=== PATIENT | female | born 1950 | race Caucasian/White ===

== ENCOUNTER 2017-07-18 17:15 | Inpatient (IN) | payer BC, MEDICARE ==
[2017-07-27 16:40] VITALS: BMI 40.1
[2017-08-02] MEDS ORDERED: Scopolamine 1.5 mg/72 hour Patch ONE (06:18)
[2017-08-02] MEDS ORDERED: Heparin 5,000 UNITS/ML VIAL ONE (06:18)
[2017-08-02] MEDS ORDERED: Ketorolac Tromethamine 30 MG/ML VIAL ONE (06:18)
[2017-08-02] MEDS ORDERED: Midazolam HCl 2 mg/2 ml Vial ONE (06:22)
[2017-08-02] MEDS ORDERED: Fentanyl 100 MCG/2 ML VIAL ONE ×3 (06:22→10:17)
[2017-08-02] MEDS ORDERED: cefOXitin Sodium 2 GM, Syringe 1 ML in Sterile Water 10 ML SLOW IVP SCH (06:30)
[2017-08-02] MEDS ORDERED: Bupivacaine/Epinephrine 0.25% 30 ML VIAL ONE (06:53)
[2017-08-02] MEDS ORDERED: Propofol 500 MG/50 ML VIAL ONE (07:07)
[2017-08-02] MEDS ORDERED: Promethazine HCl 25 MG/ML VIAL SLOW IVP PRN (09:58)
[2017-08-02] MEDS ORDERED: Ondansetron HCl/PF 4 MG/2 ML Vial IVP PRN ×2 (09:58→11:19)
[2017-08-02] MEDS ORDERED: Morphine Sulfate 2 MG/ML SYRINGE SLOW IVP PRN (09:58)
[2017-08-02] MEDS ORDERED: Meperidine HCl/PF 25 MG/ML VIAL SLOW IVP PRN (09:58)
[2017-08-02] MEDS ORDERED: HYDROmorphone 2 MG/ML VIAL SLOW IVP PRN (09:58)
[2017-08-02] MEDS ORDERED: Promethazine HCl 25 MG/ML VIAL ONE (10:17)
[2017-08-02] MEDS ORDERED: D5 1/2 NS w/20 mEq KCL 1,000 ML ONE (10:22)
[2017-08-02] MEDS ORDERED: Dextrose 50% Abboject 50 ML SYRINGE SLOW IVP PRN (11:19)
[2017-08-02] MEDS ORDERED: diphenhydrAMINE 50 MG/ML VIAL IVP PRN (11:19)
[2017-08-02] MEDS ORDERED: hydrALAZINE 20 MG/ML VIAL SLOW IVP PRN (11:19)
[2017-08-02] MEDS ORDERED: Hydrocodone-Acetamin 15 ML UDCUP PO PRN (11:19)
[2017-08-02] MEDS ORDERED: Promethazine HCl 25 MG/ML VIAL IM PRN (11:19)
[2017-08-02] MEDS ORDERED: Dextrose 5% in Water 1,000 ML IV PRN (11:19)
[2017-08-02] MEDS ORDERED: Morphine 4 MG/ML VIAL SLOW IVP PRN ×2 (12:00)
[2017-08-02] MEDS: Ketorolac Tromethamine 30 MG/ML VIAL IVP SCH ×3 (12:21→23:50)
[2017-08-02] MEDS: D5 1/2 NS w/20 mEq KCL 1,000 ML IV SCH ×2 (12:22→19:00)
[2017-08-02] MEDS ORDERED: Ondansetron HCl/PF 4 MG/2 ML Vial ONE (16:33)
[2017-08-02] MEDS ORDERED: Propofol 200 MG/20 ML VIAL ONE (16:33)
[2017-08-02] MEDS ORDERED: Dexamethasone 20 MG/5 ML VIAL ONE (16:33)
[2017-08-02] MEDS ORDERED: Glycopyrrolate 0.2 MG/ML 5 ML SYRINGE ONE (16:33)
[2017-08-02] MEDS ORDERED: Lidocaine 1% PF 5 ML VIAL ONE (16:33)
[2017-08-02] MEDS ORDERED: PHENYLEPHRINE-NS 100 MCG/ML 10 ML SYRINGE ONE (16:33)
[2017-08-02] MEDS ORDERED: Enoxaparin Sodium 40 MG/0.4 ML SYRINGE SC SCH (21:00)
[2017-08-03] MEDS: Ketorolac Tromethamine 30 MG/ML VIAL IVP SCH ×2 (05:35→12:04)
[2017-08-03] MEDS: D5 1/2 NS w/20 mEq KCL 1,000 ML IV SCH ×2 (05:41→10:20)
[2017-08-03 06:21] LABS: #Lymphocytes 1.5 thou/uL (1.20-3.40); #Monocytes 0.7 thou/uL (0.11-0.59); %Basophils 0.1 % (0.0-1.0); %Eosinophils 0.2 % (0.0-10.0); %Lymphocytes 16.2 % (21.0-51.0); Hematocrit 37.6 % (36.0-47.0); Mean Platelet Volume 7.6 fL (7.4-10.4); Red Blood Cell (RBC) Count 4.23 mill/uL (4.20-5.40); White Blood Cell (WBC) Count 9.2 thou/uL (4.8-10.8)
[2017-08-03 06:37] LABS: Anion Gap 9 mmol/L (10-20); BUN (Urea Nitrogen) 12 mg/dL (9.8-20.1); Calc. Creatinine Clearance 133 mL/min (70-130); Calcium 8.7 mg/dL (7.8-10.44); Carbon Dioxide 26 mmol/L (23-31); Chloride 106 mmol/L (98-107); Estimated GFR-MDRD 79
--- NOTE | 2017-08-03 08:55 | RAD ---
LIMITED UPPER GI WITH 15 ML GASTROGRAFIN: Date: 08/03/17 HISTORY: Recent bariatric surgery (gastric bypass). FINDINGS: There is prompt passage of contrast from the esophagus into the small bowel loop. No contrast extrava sation is seen. IMPRESSION: Unremarkable exam. POS: CHELY
[2017-08-03] MEDS ORDERED: FLUoxetine HCl 20 MG CAP PO SCH (09:00)
[2017-08-03 12:17] VITALS: BP 154/84; TEMP 98
[2017-08-03] MEDS ORDERED: Pantoprazole 40 MG VIAL IVP SCH (21:00)
--- NOTE | 2017-08-04 05:52 | OP ---
DATE OF PROCEDURE: 08/02/2017 PREOPERATIVE DIAGNOSIS: Morbid obesity. POSTOPERATIVE DIAGNOSIS: Morbid obesity. PROCEDURE PERFORMED: Laparoscopic Jocelynn-en-Y gastric bypass. SURGEON: Dr. Catrachito Mello. TACK PICKER: Christopher Ohara M.D. ANESTHESIA: General endotracheal. INDICATIONS: The patient is a 67-year-old white female. She presents with a long history of obesity . She has undergone preoperative evaluation and education and presents at this time for laparoscopic gastric bypass. OPERATIVE PROCEDURE IN DETAIL: Informed consent was obtained. The patient was taken to the operatin g room where general endotracheal anesthesia was obtained with the patient in supine position. The a bdomen was prepped with ChloraPrep and draped in sterile fashion. Local anesthetic was infiltrated u sing 0.25% Marcaine with epinephrine and a 5 mm supraumbilical incision was created through which Andreas ess needle was passed into the peritoneal cavity and pneumoperitoneum established using carbon dioxid e up to a pressure of 15 mmHg. A 5 mm trocar port was passed through this same incision. Laparoscop ic camera was passed through this port. Under direct vision, 4 additional ports were placed includin g bilateral subcostal 5 mm ports, a 12 mm right paramedian port, and a 15 mm left paramedian port. I also made a 5 mm epigastric incision through which I placed a Pk retractor, which was used to elevate the left lobe of the liver. Attention was turned inferiorly. There were adhesions to the anterior abdominal wall. Some of these were easily lysed, but some of these were fairly tightly adherent to the abdominal wall and I decide d not to risk bowel injury by addressing this further. I was uncertain if that would be a segment of bowel to be involved in the gastric bypass or not. Attention was then turned to the omentum. This was split in the midline up to the transverse colon u sing the LigaSure device. The ligament of Treitz was identified and the small bowel was traced 50 cm distally where it was divided with a single fire of the white load of the Corinna stapler. The dist al segment of bowel was devascularized for 5 cm. I then traced the bowel 100 cm distally and at this point, created an anastomosis between the biliary limb and the Jocelynn limb with a single firing of the white load of the stapler. The enterotomy was closed with a transverse firing of another load of th e stapler. The mesentery defect was then closed with 2 interrupted sutures of 3-0 Vicryl. The patient was placed into a reverse Trendelenburg position. Attention was turned to the stomach. I first dissected the angle of His. I then identified the lesser curvature, approximately 5 cm from the gastroesophageal junction. At this point, I dissected into the lesser sac and then fired a blue load of the Corinna stapler partially across the stomach at this level. A gastrotomy was then create d on the distal stomach. Through this, I placed the anvil of the 25 mm EEA stapler and brought this out through the anterior gastric wall just proximal to the staple line using the 5 mm band passer. T he gastrotomy was then closed with 2 fires of the Corinna stapler. The pouch was then completed with two additional firings of the Corinna stapler. The staple lines were inspected and noted to be hemo static. Attention was then turned to the Jocelynn limb. An enterotomy was created and the EEA stapler w as advanced within the Jocelynn limb beyond the mesenteric split. At this point, the spike was advanced through the wall of the small bowel and was attached to the anvil. The small bowel and stomach were approximated and anastomosed by firing the stapler. Doughnuts were inspected and noted to be intact. The devascularized segment of the small bowel was removed with a final firing of the Corinna staple r, which included the enterotomy as well. The anastomosis was then buttressed with 3 interrupted sut ures of 3-0 Vicryl. A nasogastric tube was advanced through the anastomosis and a leak test was perf ormed with the staple lines under water. There was no evidence of leak. All irrigant was aspirated. The Pk retractor was removed. The fascial defect at the 15 mm port site was closed with the GraNee needle using 0 Vicryl suture. All ports and instruments were removed under direct vision. P neumoperitoneum was carefully evacuated. Quarter percent Marcaine with epinephrine was infiltrated i n each port site. Skin edges approximated with 4-0 Monocryl subcuticular suture. Dermabond was plac ed externally. There were no complications. The patient tolerated the procedure well and was taken to recovery room in stable condition.
== END 2017-08-03 16:01 | disposition home or self-care (01) | DRG 621 ==
LOC: SURG A 08-02 05:51
PROVIDERS: ADMIT Specialist; ATTEND Specialist
PROC: 0D164ZA Bypass Stomach to Jejunum, Percutaneous Endoscopic Approach (ICD-10-PCS; principal; 2017-08-02)
DX: E66.01 Morbid (severe) obesity due to excess calories (principal); F32.9 Major depressive disorder, single episode, unspecified; K43.2 Incisional hernia without obstruction or gangrene; Z68.41 Body mass index [BMI] 40.0-44.9, adult; F17.210 Nicotine dependence, cigarettes, uncomplicated
CPT/HCPCS: 36415; 74241; 80048; 85025; A4216; J0131; J0694; J1100; J1644; J1650; J1885; J2001; J2250; J2405; J2550; J2704; J3010

== ENCOUNTER 2017-07-27 16:30 | Outpatient (CLI) | payer BC, MEDICARE | END 2017-07-27 16:31 | disposition home or self-care (01) | LOC: LABBT 16:30 | PROVIDERS: ATTEND Specialist | DX: Z01.812 Encounter for preprocedural laboratory examination (principal); E66.01 Morbid (severe) obesity due to excess calories ==

== ENCOUNTER 2017-11-12 08:47 | Outpatient (CLI) | payer BC, MEDICARE ==
--- NOTE | 2017-11-12 10:59 | RAD ---
UPPER GI: Indications: Previous bariatric surgery with complaints of food not passing through stomach and regur gitation. FINDINGS: Esophagus appears unremarkable. There is evidence of a Jocelynn-en-Y procedure. The Jocelynn limb fills with contrast immediately and appears unremarkable. The Y limb refluxes in the gastroduodenal and appears unremarkable. Patient was given a 12 mm barium tablet. This tablet lodged at the gastric pouch and does not pass th rough into the Jocelynn limb even with repeated swallows of water and barium. This tablet remains in plac e after overhead films were performed following the procedure. IMPRESSION: The patient is post Jocelynn-en-Y type procedure. Both limbs appear unremarkable. A swallowed barium tabl et lodged in the gastric pouch and did not pass through the gastrojejunal anastomosis even with repea chitra swallows suggesting possible narrowing at this anastomosis. POS: CHELY
== END 2017-11-12 08:48 | disposition home or self-care (01) ==
LOC: RAD 08:47
PROVIDERS: ATTEND Specialist
DX: Z98.84 Bariatric surgery status (principal)
CPT/HCPCS: 74241; 76705

== ENCOUNTER 2018-08-29 05:54 | Day surgery (SDC) | payer BC, MEDICARE ==
[2018-08-21 16:24] VITALS: BMI 26.6
[2018-08-29] MEDS ORDERED: Fentanyl 250 MCG/5 ML VIAL ONE (06:41)
[2018-08-29] MEDS ORDERED: Bupivacaine/Epinephrine 0.25% 30 ML VIAL ONE (06:54)
[2018-08-29] MEDS ORDERED: Bupivacaine HCl 0.5%/Epinephrine 1:200,000/PF 30 ml Vial ONE (06:54)
[2018-08-29] MEDS ORDERED: Propofol 500 MG/50 ML VIAL ONE (06:56)
[2018-08-29] MEDS ORDERED: CEFAZOLIN 2 GM/50 ML BAG ONE (07:09)
[2018-08-29] MEDS ORDERED: Ketorolac Tromethamine 30 MG/ML VIAL ONE ×2 (07:10→15:15)
[2018-08-29 07:28] LABS: #Eosinphils 0.1 thou/uL (0.0-0.7); #Lymphocytes 1.5 thou/uL (1.20-3.40); #Monocytes 0.4 thou/uL (0.11-0.59); #Neutrophils 2.4 thou/uL (1.40-6.50); %Basophils 0.3 % (0.0-1.0); %Eosinophils 2.5 % (0.0-10.0); %Lymphocytes 33.7 % (21.0-51.0); %Monocytes 8.8 % (0.0-10.0); %Neutrophils 54.6 % (42.0-75.0); Hemoglobin 11.3 g/dL (12.0-16.0); Mean Corpuscular HGB CONC 33.3 g/dL (32.0-36.0); Mean Corpuscular Hemoglobin 29.7 pg (27.0-31.0); Mean Corpuscular Volume 89.3 fL (78.0-98.0); Mean Platelet Volume 7.6 fL (7.4-10.4); Platelet Count 203 thou/uL (130-400); RBC Distribution Width 12.8 % (11.5-14.5); Red Blood Cell (RBC) Count 3.81 mill/uL (4.20-5.40); White Blood Cell (WBC) Count 4.3 thou/uL (4.8-10.8)
[2018-08-29 07:46] LABS: Anion Gap 11 mmol/L (10-20); BUN (Urea Nitrogen) 14 mg/dL (9.8-20.1); Calc. Creatinine Clearance 88 mL/min (70-130); Calcium 8.8 mg/dL (7.8-10.44); Carbon Dioxide 24 mmol/L (23-31); Chloride 107 mmol/L (98-107); Estimated GFR-MDRD 80; Glucose 83 mg/dL (80-115); Sodium 138 mmol/L (136-145)
[2018-08-29] MEDS ORDERED: ePHEDrine/0.9% NaCl/PF SYRINGE 50 mg/10 ml ONE (15:15)
[2018-08-29] MEDS ORDERED: Lidocaine 1% PF 5 ML VIAL ONE (15:15)
[2018-08-29] MEDS ORDERED: Rocuronium Bromide 10 MG/ML (10ML VIAL) ONE (15:15)
[2018-08-29] MEDS ORDERED: Dexamethasone 20 MG/5 ML VIAL ONE (15:15)
[2018-08-29] MEDS ORDERED: Glycopyrrolate 0.2 MG/ML 5 ML SYRINGE ONE (15:15)
[2018-08-29] MEDS ORDERED: PROPOFOL 200 MG/20 ML VIAL ONE (15:15)
[2018-08-29] MEDS ORDERED: Ondansetron PF 4 MG/2 ML Vial ONE (15:15)
--- NOTE | 2018-08-30 15:30 | OP ---
DATE OF PROCEDURE: 08/29/2018 PREOPERATIVE DIAGNOSIS: Left abdominal ventral hernia. POSTOPERATIVE DIAGNOSIS: Left abdominal ventral hernia. OPERATION PERFORMED: Robotic repair of left abdominal ventral hernia using a Ventralex mesh patch. ANESTHESIA: General endotracheal. INDICATIONS: The patient is a 68-year-old white female. She has undergone a weight loss surgery and she has lost approximately 100 pounds over the course of the past year. She is now felt to be an appropriate candidate to proceed with repair of the left-sided abdominal wall hernia. The location of this hernia was such that I thought that there was a good chance that this would be a spigelian hernia. DESCRIPTION OF OPERATION: Informed consent was obtained, the patient was taken to the operating room, where general endotracheal anesthesia was obtained with the patient in supine position. A Cruz catheter was placed, abdomen was prepped with ChloraPrep and draped in sterile fashion. Local anesthetic was infiltrated using 0.25% Marcaine with epinephrine, and an 11-mm right lateral incision was created through which a Veress needle was passed into the peritoneal cavity. Pneumoperitoneum was established using carbon dioxide up to pressure of 15 mmHg. An 11 mm trocar port was passed through the same incision. Laparoscopic camera was passed this port. Under direct vision, two additional 8-mm robotic ports were placed, one in the right lower quadrant and one in the left lower quadrant. There were adhesions of loops of small bowel to the anterior abdominal wall in the right lower quadrant and these were taken down using careful sharp dissection before placing the lower port. Attention was turned to the hernia. This was easily visible externally and internally. This, however, was clearly not a spigelian hernia. It was instead a wide-based hernia. Some of the margins of the defect were not discrete. The overall dimensions of the hernia appeared to be about 7 x 7 cm. Sharp dissection was carried out of the peritoneum overlying the edge of the defect in order to better visualize the underlying muscle. I then utilized a #1 Stratafix suture that was placed in a to and fro fashion completely approximating the edges of the defect in a somewhat oblique fashion running up and back to the length of the suture line. The tissues were well-approximated under no tension. The suture line was measured and found to also be approximately 7 cm. I chose an 11 cm Ventralex round mesh patch. This was trimmed at the sides to convert into an oval patch rather than a round patch. This was passed into the abdominal cavity and secured in place in the center of the suture line using the needle from the Stratafix suture. I then obtained a 2-0 Stratafix suture and used this to run the suture circumferentially around the outside of the mesh. Two separate length of this suture were required to go around the circumference of the mesh patch. The mesh was nicely approximated circumferentially and more than adequately covered the area of the suture line. The fascial defect at the 12 mm port site was closed with 0 Vicryl sutures and GraNee needle. All ports and instruments were removed under direct vision. Pneumoperitoneum was carefully evacuated. 0.25% Marcaine with epinephrine was infiltrated at each port site. Skin edges approximated with 4-0 Monocryl subcuticular suture. Dermabond was placed externally. There were no complications. The patient tolerated the procedure well and was taken to the recovery room in stable condition. Job ID: [id number]
== END 2018-08-29 13:15 | disposition home or self-care (01) ==
LOC: SDC 05:54
PROVIDERS: ATTEND Specialist
PROC: 0WUF4JZ Supplement Abdominal Wall with Synthetic Substitute, Percutaneous Endoscopic Approach (ICD-10-PCS; principal; 2018-08-29)
DX: K43.9 Ventral hernia without obstruction or gangrene (principal); F32.9 Major depressive disorder, single episode, unspecified; I08.1 Rheumatic disorders of both mitral and tricuspid valves; Z79.899 Other long term (current) drug therapy; Z98.84 Bariatric surgery status
CPT/HCPCS: 36415; 80048; 85025; C1781; J0131; J0670; J1100; J1885; J2001; J2405; J2704; J3010

== ENCOUNTER 2019-07-28 16:12 | Outpatient (CLI) | payer BC, MEDICARE ==
--- NOTE | 2019-07-28 17:03 | MMO ---
Bilateral MAMMO Bilat Screen [facility]. CLINICAL HISTORY: Patient is 69 years old and is seen for screening. VIEWS: The views performed were: bilateral craniocaudal with tomosynthesis and bilateral mediolateral oblique with tomosynthesis. This study has been interpreted with the assistance of computer-aided detection. MAMMOGRAM FINDINGS: The breasts are heterogeneously dense, which could obscure a lesion on mammography. There is an oval mass measuring 10 millimeters seen in the CC view only seen in the outer region of the right breast. In the left breast, there are no suspicious masses, calcifications or areas of architectural distortion. IMPRESSION: MASS IN THE RIGHT BREAST REQUIRES ADDITIONAL EVALUATION. ADDITIONAL IMAGING. THE RESULTS OF THIS EXAM WERE SENT TO THE PATIENT. ACR BI-RADS Category 0 - Incomplete: Need additional imaging evaluation. [facility] will notify the patient of the need for additional imaging services. MAMMOGRAPHY NOTE: 1. A negative mammogram report should not delay a biopsy if a dominant of clinically suspicious mass is present. 2. Approximately 10% to 15% of breast cancers are not detected by mammography. 3. Adenosis and dense breasts may obscure an underlying neoplasm. Reported by: JACK COX MD Electonically Signed: [id number]
== END 2019-07-28 16:13 | disposition home or self-care (01) ==
LOC: BICMAMMO 16:12
PROVIDERS: ATTEND Family Medicine
DX: Z12.31 Encounter for screening mammogram for malignant neoplasm of breast (principal); N63.10 Unspecified lump in the right breast, unspecified quadrant
CPT/HCPCS: 77063; 77067

== ENCOUNTER 2019-08-07 09:43 | Outpatient (CLI) | payer BC, MEDICARE ==
--- NOTE | 2019-08-07 10:18 | MMO ---
Right Breast MAMMO Unilat Diag [facility]DI RT+SHOSHANA. CLINICAL HISTORY: Patient is 69 years old and is seen for diagnostic exam. The patient has no family history of breast cancer. The patient has no personal history of cancer. VIEWS: The views performed were: right craniocaudal spot compression with tomosynthesis and right mediolateral with tomosynthesis. FILMS COMPARED: The present examination has been compared to a prior imaging study performed at [facility] on 07/28/2019. This study has been interpreted with the assistance of computer-aided detection. MAMMOGRAM FINDINGS: The breast is heterogeneously dense, which could obscure a lesion on mammography. There are no suspicious masses, suspicious calcifications, or new areas of architectural distortion. The asymmetry seen at screening mammography does not persist at additional imaging, compatible with superimposed tissue. IMPRESSION: THERE IS NO MAMMOGRAPHIC EVIDENCE OF MALIGNANCY. A ROUTINE FOLLOW-UP MAMMOGRAM IN 1 YEAR IS RECOMMENDED. THE RESULTS OF THIS EXAM WERE SENT TO THE PATIENT. ACR BI-RADS Category 1 - Negative MAMMOGRAPHY NOTE: 1. A negative mammogram report should not delay a biopsy if a dominant of clinically suspicious mass is present. 2. Approximately 10% to 15% of breast cancers are not detected by mammography. 3. Adenosis and dense breasts may obscure an underlying neoplasm. Reported by: JACK TAYLOR MD Electonically Signed: [id number]
== END 2019-08-07 09:44 | disposition home or self-care (01) ==
LOC: BICMAMMO 09:43
PROVIDERS: ATTEND Family Medicine
DX: N63.10 Unspecified lump in the right breast, unspecified quadrant (principal)
CPT/HCPCS: G0279

== ENCOUNTER 2020-07-26 12:44 | Outpatient (CLI) | payer BC, MEDICARE ==
[~2020-07-26 12:44] MED LIST: Iopamidol-370 76% 500 ML 1 ML ONE
--- NOTE | 2020-07-26 13:17 | CT ---
CT OF THE ABDOMEN AND PELVIS WITH IV CONTRAST INDICATION: History of abdominal pain and left-sided pelvic pain COMPARISON: None FINDINGS: ABDOMEN: Lung bases: Clear Liver: No focal lesion. Gallbladder: Mildly contract Pancreas: Normal. Adrenal glands: Normal. Spleen: Normal. Kidneys and ureters: Normal. No hydronephrosis. Vasculature: There are mild vascular calcifications seen involving the visualized vasculature. Lymph nodes:No lymphadenopathy. Free fluid in abdomen:No free fluid is evident. PELVIS: Small and large bowel: There is scattered colonic diverticula. There is postsurgical change of a prio r gastric bypass. Appendix:Normal Bladder: Partially decompressed Rectal and perirectal soft tissues:Normal. Reproductive structures: Normal. Free fluid in pelvis: No free fluid is evident. Lymphadenopathy pelvis: No lymphadenopathy is evident. Osseous structures: No acute osseous abnormality. No destructive osteolytic or osteoblastic lesion i s identified. There is scattered degenerative and osteoarthritic changes. Soft tissues:Normal. IMPRESSION: 1. No acute abnormality.
== END 2020-07-26 12:45 | disposition home or self-care (01) ==
LOC: BICCT 12:44
PROVIDERS: ATTEND Specialist
DX: R10.9 Unspecified abdominal pain (principal)
CPT/HCPCS: 74177

== ENCOUNTER 2020-08-10 15:24 | Outpatient (CLI) | payer BC, MEDICARE ==
--- NOTE | 2020-08-10 16:04 | MMO ---
Bilateral MAMMO Bilat Screen [facility]DI+[facility]OSHANA. CLINICAL HISTORY: Patient is 70 years old and is seen for screening. The patient has no family history of breast cancer. The patient has no personal history of cancer. VIEWS: The views performed were: bilateral craniocaudal with tomosynthesis and bilateral mediolateral oblique with tomosynthesis. FILMS COMPARED: The present examination has been compared to prior imaging studies performed at [facility] on 07/28/2019 and 08/07/2019. This study has been interpreted with the assistance of computer-aided detection. MAMMOGRAM FINDINGS: There are scattered fibroglandular densities. There are stable benign appearing calcifications seen in both breasts. There are no suspicious masses, suspicious calcifications, or new areas of architectural distortion. IMPRESSION: THERE IS NO MAMMOGRAPHIC EVIDENCE OF MALIGNANCY. A ROUTINE FOLLOW-UP MAMMOGRAM IN 1 YEAR IS RECOMMENDED. THE RESULTS OF THIS EXAM WERE SENT TO THE PATIENT. ACR BI-RADS Category 2 - Benign finding MAMMOGRAPHY NOTE: 1. A negative mammogram report should not delay a biopsy if a dominant of clinically suspicious mass is present. 2. Approximately 10% to 15% of breast cancers are not detected by mammography. 3. Adenosis and dense breasts may obscure an underlying neoplasm. Reported by: KASSY NAVARRO MD Electonically Signed: [id number]
== END 2020-08-10 15:25 | disposition home or self-care (01) ==
LOC: BICMAMMO 15:24
PROVIDERS: ATTEND Family Medicine
DX: Z12.31 Encounter for screening mammogram for malignant neoplasm of breast (principal)
CPT/HCPCS: 77063; 77067

== ENCOUNTER 2021-12-13 15:18 | Outpatient (CLI) | payer MEDICARE, BC | END 2021-12-13 15:19 | disposition home or self-care (01) | LOC: BICMAMMO 15:18 | PROVIDERS: ATTEND Physician Assistant | DX: Z13.820 Encounter for screening for osteoporosis (principal); Z78.0 Asymptomatic menopausal state; M85.89 Other specified disorders of bone density and structure, multiple sites | CPT/HCPCS: 77080 ==

== ENCOUNTER 2022-01-11 14:31 | Outpatient (CLI) | payer MEDICARE | END 2022-01-11 14:32 | disposition home or self-care (01) | LOC: ULT 14:31 | PROVIDERS: ATTEND Nurse Practitioner Family | DX: R10.2 Pelvic and perineal pain (principal) | CPT/HCPCS: 76856 ==

== ENCOUNTER 2024-07-30 10:08 | Observation (INO) | payer MEDICARE, OTHER ==
[2024-07-30 11:07] LABS: #Basophils 0.03 10x3/uL (0.0-0.2); %Basophils 0.7 % (0.0-1.0); %Eosinophils 0.9 % (0.0-10.0); %Lymphocytes 28.9 % (21.0-51.0); %Monocytes 15.1 % (0.0-10.0); %Neutrophils 53.3 % (42.0-75.0); Hemoglobin 7.1 g/dL (12.0-16.0); Mean Corpuscular HGB CONC 30.9 g/dL (32.0-36.0); Mean Corpuscular Hemoglobin 26.5 pg (27.0-31.0); Mean Corpuscular Volume 85.8 fL (78.0-98.0); Platelet Count 123 10x3/uL (130-400); RBC Distribution Width 21.2 % (11.5-14.5); Red Blood Cell (RBC) Count 2.68 mill/uL (4.20-5.40)
[2024-07-30 11:10] LABS: ALT (SGPT) 13 U/L (8-55); AST (SGOT) 47 U/L (5-34); Albumin 2.9 g/dL (3.4-4.8); Alkaline Phosphatase 42 U/L (40-110); Anion Gap 12 mmol/L (10-20); BUN (Urea Nitrogen) 12 mg/dL (9.8-20.1); Bilirubin, Total 1.8 mg/dL (0.2-1.2); Calc. Creatinine Clearance 0 mL/min (70-130); Calcium 8.5 mg/dL (7.8-10.44); Carbon Dioxide 21 mmol/L (23-31); Chloride 107 mmol/L (98-107); Estimated GFR 53; Globulin 3.2 g/dL (2.4-3.5); Glucose 111 mg/dL (83-110); Potassium 4.1 mmol/L (3.5-5.1); Protein, Total 6.1 g/dL (5.8-8.1); Sodium 136 mmol/L (136-145)
[2024-07-30] MEDS ORDERED: Pantoprazole 80 MG, Admixture Fee 1 EACH in Sodium Chloride 0.9% 100 ML IVPB SCH (13:00)
[2024-07-30 13:09] LABS: Troponin I 0.014 ng/mL (< 0.028)
[2024-07-30] MEDS ORDERED: Ondansetron ODT 4 MG TAB PO PRN (17:18)
[2024-07-30] MEDS ORDERED: Acetaminophen 325 MG TAB PO PRN (17:18)
[2024-07-30] MEDS: Sodium Chloride 0.9% 1,000 ML IV SCH (18:04)
[2024-07-30 18:07] VITALS: BMI 31.5
[2024-07-30] MEDS: Pantoprazole 40 MG VIAL IVP SCH (21:16)
[2024-07-30 21:25] LABS: Hematocrit 27.7 % (36.0-47.0); Hemoglobin 8.6 g/dL (12.0-16.0)
[2024-07-30] MEDS: Ciprofloxacin 500 MG TAB PO SCH (22:29)
[2024-07-30 23:46] LABS: Hematocrit 24.1 % (36.0-47.0); Hemoglobin 7.5 g/dL (12.0-16.0)
[2024-07-31 06:39] LABS: Anion Gap 12 mmol/L (10-20); BUN (Urea Nitrogen) 9 mg/dL (9.8-20.1); Calc. Creatinine Clearance 94 mL/min (70-130); Calcium 8.1 mg/dL (7.8-10.44); Carbon Dioxide 21 mmol/L (23-31); Chloride 111 mmol/L (98-107); Estimated GFR 81; Glucose 99 mg/dL (83-110); Potassium 3.9 mmol/L (3.5-5.1); Sodium 140 mmol/L (136-145)
[2024-07-31 06:47] LABS: #Basophils 0.03 10x3/uL (0.0-0.2); %Basophils 0.7 % (0.0-1.0); %Lymphocytes 31.1 % (21.0-51.0); %Monocytes 14.2 % (0.0-10.0); %Neutrophils 51.1 % (42.0-75.0); Hemoglobin 7.7 g/dL (12.0-16.0); Mean Corpuscular HGB CONC 30.8 g/dL (32.0-36.0); Mean Corpuscular Hemoglobin 25.8 pg (27.0-31.0); Mean Corpuscular Volume 83.9 fL (78.0-98.0); Mean Platelet Volume 10.8 fL (7.4-10.4); Platelet Count 91 10x3/uL (130-400); Red Blood Cell (RBC) Count 2.98 mill/uL (4.20-5.40)
[2024-07-31] MEDS ORDERED: Lidocaine 2% PF 5 ML VIAL ONE (08:43)
[2024-07-31] MEDS ORDERED: PROPOFOL 20 ML ONE (08:43)
[2024-07-31 13:34] LABS: Hematocrit 23.3 % (36.0-47.0); Hemoglobin 7.2 g/dL (12.0-16.0)
[2024-07-31 16:39] VITALS: BP 109/75; TEMP 98.3
[2024-08-01] MEDS ORDERED: Iron Polysaccharides Complex 150 MG CAP PO SCH (08:00)
[2024-08-01] MEDS ORDERED: Pantoprazole DR 40 MG TAB PO SCH (09:00)
== END 2024-07-31 16:24 | disposition home or self-care (01) ==
LOC: ERS 10:08 → T4-A 14:46
PROVIDERS: ADMIT Student in an Organized Health Care Education/Training Program; ATTEND Internal Medicine
PROC: 0DJ08ZZ Inspection of Upper Intestinal Tract, Via Natural or Artificial Opening Endoscopic (ICD-10-PCS; principal; 2024-07-31)
DX: K28.9 Gastrojejunal ulcer, unspecified as acute or chronic, without hemorrhage or perforation (principal); K21.9 Gastro-esophageal reflux disease without esophagitis; D64.9 Anemia, unspecified; N39.0 Urinary tract infection, site not specified; Z98.84 Bariatric surgery status; Z86.0100 Personal history of colon polyps, unspecified; Z79.2 Long term (current) use of antibiotics; Z79.899 Other long term (current) drug therapy
CPT/HCPCS: 36430; 43235; 71045; 80048; 80053; 83605; 83880; 84484; 85014 ×2; 85018 ×2; 85025 ×2; 86850; 86870; 86900; 86901; 86902; 86905; 86920; 86922; 93005; 96376 ×2; G0378 ×3; J2470 ×2; J2704; J7030 ×2; P9016; 36415

== ENCOUNTER 2024-08-08 13:15 | Outpatient (CLI) | payer OTHER | END 2024-08-08 13:16 | disposition home or self-care (01) | LOC: BICULT 13:15 | PROVIDERS: ATTEND Family Medicine | DX: N28.9 Disorder of kidney and ureter, unspecified (principal) | CPT/HCPCS: 76770 ==